=== PATIENT | female | born 1985 | race Caucasian/White ===

== ENCOUNTER 2023-06-19 18:50 | Emergency (ER) | payer SELFPAY ==
[2023-06-19 21:05] LABS: HEMATOCRIT 40.9 % (34.3-46.0); HEMOGLOBIN 13.9 g/dL (11.2-15.5); MEAN CORPUSCULAR HEMOGLOBIN 30.2 pg (31.6-35.5); MEAN CORPUSCULAR VOLUME 88.9 fL (81.4-99.0); WHITE BLOOD CELL COUNT,WBC 3.4 K/uL (3.2-11.0)
[2023-06-19 21:20] LABS: CALCIUM 8.1 mg/dL (8.5-10.1); CREATININE 1.3 mg/dL (0.6-1.0); EST CRCL DRUG DOSING (CG) 57.06 mL/min; POTASSIUM,K 3.1 mmol/L (3.6-5.2)
[2023-06-19 21:21] LABS: APPEARANCE,URINE CLEAR (CLEAR); BILIRUBIN,URINE NEGATIVE (NEGATIVE); COLOR,URINE YELLOW (YELLOW); GLUCOSE,URINE NEGATIVE (NEGATIVE); KETONES,URINE NEGATIVE (NEGATIVE); LEUKOCYTE ESTERASE,URINE NEGATIVE (NEGATIVE); NITRITE,URINE NEGATIVE (NEGATIVE); OCCULT BLOOD,URINE NEGATIVE (NEGATIVE); PROTEIN,URINE 30 mg/dL (NEGATIVE); UROBILINOGEN,URINE 0.2 EU/dL (0.2-1.0)
[2023-06-19 21:25] LABS: ATYPICAL LYMPHOCYTES FEW; BAND ABSOLUTE MAN 0.24 K/uL; BAND PERCENT MAN 7 % (5-11); LYMPHOCYTES ABSOLUTE MAN 0.37 K/uL (0.8-3.3); LYMPHOCYTES PERCENT MAN 11 % (24-44); MONOCYTES ABSOLUTE MAN 0.14 K/uL (0.20-0.90); MONOCYTES PERCENT MAN 4 % (2-6); NEUTROPHILS ABSOLUTE MAN 2.65 K/uL (1.0-7.6); SEG NEUTROPHILS PERCENT MAN 78 % (36-66)
[2023-06-19 21:27] LABS: PLATELET COUNT,PLT 72 K/uL (130-375)
[2023-06-19 21:28] LABS: ANION GAP 12.1 mmol/L (5.0-14.0)
[2023-06-19 21:30] LABS: AMORPHOUS SEDIMENT,URINE NOT SEEN; BACTERIA,URINE MODERATE; EPITHELIAL CELLS,URINE RARE; MUCUS,URINE NOT SEEN; RBC,URINE 0-5 (0-5); WBC,URINE 0-5 (0-5)
[2023-06-19 21:42] LABS: LYME AB IgG Negative (Negative); LYME AB IgM Negative (Negative)
[2023-06-19] MEDS ORDERED: Potassium Chloride 20 MEQ Tab.ER PO ONE (21:56)
[2023-06-24 17:12] LABS: E. CHAFFEENSIS (HME) IGG TITER Negative (Neg:<1:64); E. CHAFFEENSIS (HME) IGM TITER Negative (Neg:<1:20); HGE IGG TITER Negative (Neg:<1:64); HGE IGM TITER Negative (Neg:<1:20)
== END 2023-06-19 22:28 | disposition home or self-care (01) ==
LOC: JP.ED 18:50
DX: E87.6 Hypokalemia (principal); D69.6 Thrombocytopenia, unspecified; R33.9 Retention of urine, unspecified; N17.9 Acute kidney failure, unspecified; R50.9 Fever, unspecified; F17.210 Nicotine dependence, cigarettes, uncomplicated; Z20.822 Contact with and (suspected) exposure to COVID-19
CPT/HCPCS: 36415; 80048; 81001; 85025; 86618; 86666; 86753; 86788; 86789; 99284; U0002